=== PATIENT | male | born 1990 | race Caucasian/White ===

== ENCOUNTER 2021-08-12 03:02 | Emergency (ER) | payer MEDICAID, SELFPAY ==
[2021-08-12] VITALS (15 sets, daily range): BP systolic 124–133; BP diastolic 81–95; PULSE 106–114; RESP 17–26; TEMP 36.2; O2SAT 98–100
--- NOTE | 2021-08-12 03:00 | RT.EKG_ITS ---
APPROVED REPORT Exam: Resting ECG Reason for Exam: od Patient Location: E HR:112 bpm ECG Measurements Heart Rate 112 AXIS NM 138 P 44 QRSd 91 QRS 66 QT 334 T 10 QTc 456 Conclusion Sinus tachycardia...rate> 99 Physician: no stemi, intervals stable
--- NOTE | 2021-08-12 03:13 | ED.GENADUL_ITS ---
Discharge Plan Disposition Patient Disposition: HOME Condition: Good Discharge Details Clinical Impression: Overdose, Acute hypokalemia Primary Care Provider: Moni Camp ED Provider: Marcos Nichols Home Meds and New Rx's Prescriptions: Continued clindamycin HCl 300 MG capsule 300 mg PO QID Qty: 28 0RF dextroamphetamine-amphetamine 30 mg tablet 30 mg PO BID 0RF Label Comments: TAKE ONE TABLET BY MOUTH TWICE DAILY buspirone 10 mg tablet 10 mg PO BID 0RF Label Comments: TAKE 1 TABLET BY MOUTH TWICE DAILY albuterol sulfate [ProAir HFA] 90 mcg/actuation HFA aerosol inhaler 2 inh INHALATION PRN PRN0RF Label Comments: INHALE 2 PUFFS BY MOUTH EVERY 6 HOURS NEEDED . 1 INHALER TO LAST 30 DAYS Discharge Instructions Instructions: Hypokalemia (ED), Adult Overdose (ED) Additional Instructions: It is our recommendation that you avoid using any illicit substances, including narcotic substances since this can be life-threatening. Please use Narcan if needed. If you notice any worsening of your symptoms, or any new symptoms such as vomiting, diarrhea, fever, chills, shortness of breath, chest pain, numbness, weakness, or fainting , please return immediately to the emergency department for reevaluation. Please follow up with your primary care provider as soon as possible for reassessment and reevaluation. As always, it was a pleasure participating in your medical care today. Referrals: Moni Camp [Primary Care Provider] - Medical Decision Making this is a 31-year-old male with a past medical history of illicit drug use, who presents today from [place] for medical evaluation. The patient is vague on details, but per EMS report the patient was found overdose at home, state police allegedly performed CPR, but to what degree is unknown, he was given multiple doses of Narcan and came to shortly after this. EMS reports that state police also threw a bucket of ice water on him and this seemed to help him wake up as well. At the time EMS arrived, the patient was responsive, showed no neurologic deficits, and was hemodynamically stable. Patient was going to go to [facility] at that time, however [facility] police requested that EMS divert to [facility] so that the patient would remain in [place] jurisdiction as he was in police custody technically. Currently the patient denies any homicidal or suicidal ideations. He denies any drug use and states that he does not recall the events of the evening. He does not exactly recall the last time he used heroin, states that he has used it in the past. He does speak fairly prolifically about his frustration with the calyceal system, as well as his current status. Patient has no complaints of chest pain, shortness of breath, headache, numbness tingling or weakness. No other complaints at this time. No other modifying factors. Physical exam Demonstrates no concerning abnormalities. No evidence of trauma to the chest, or signs of CPR of the chest. Patient shows no neurologic deficits. Exam otherwise unremarkable. We will gently rehydrate, evaluate for concerning abnormalities, monitor closely and reassess. 4:16 AM The [facility] railroad police is now here. He states that patient was unresponsive, he did check for carotid pulse and was unsure if 1 was present, and so noticing that the patient was not breathing began CPR because of this. The patient response came after the Narcan administration. The railroad police also states that the patient is currently only in police custody until a citation can be given which the railroad police is waiting for the citation warning from the personnel officer. We are still pending the patient's laboratory work-up, he is otherwise stable at this time. He feels well. 4:34 AM The remainder of the patient's laboratory work-up is returned and is stable. Potassium slightly low, but does not need emergent correction. Recommended high potassium foods on an outpatient basis. Will give Narcan for home use. Patient stable. Different sites which to return. No signs of respiratory distress, cardiac abnormality, chest pain, shortness of breath or other concerning abnormality. I did offer counseling services for addiction with the patient, and he has declined at this time. I have extensively reviewed the treatment plan and discharge instructions with the patient. I have addressed all patient concerns at this time. The patient was made aware of what symptoms to monitor for that would warrant a return to the emergency department. Discussed the plan with the patient, they demonstrate verbal understanding and agreement with our assessment and plan at this time. The documentation in this chart was dictated using [employer] dictation software. Please excuse any dictation errors. HPI General Date/Time Provider Initiated Documentation: 08/12/21 03:12 . HPI Narrative: this is a 31-year-old male with a past medical history of illicit drug use, who presents today from [place] for medical evaluation. The patient is vague on details, but per EMS report the patient was found overdose at home, state police allegedly performed CPR, but to what degree is unknown, he was given multiple doses of Narcan and came to shortly after this. EMS reports that state police also threw a bucket of ice water on him and this seemed to help him wake up as well. At the time EMS arrived, the patient was responsive, showed no neurologic deficits, and was hemodynamically stable. Patient was going to go to [facility] at that time, however [facility] police requested that EMS divert to [facility] so that the patient would remain in [place] jurisdiction as he was in police custody technically. Currently the patient denies any homicidal or suicidal ideations. He denies any drug use and states that he does not recall the events of the evening. He does not exactly recall the last time he used heroin, states that he has used it in the past. He does speak fairly prolifically about his frustration with the calyceal system, as well as his current status. Patient has no complaints of chest pain, shortness of breath, headache, numbness tingling or weakness. No other complaints at this time. No other modifying factors. Related Data Home Medications Medication Instructions Recorded Confirmed clindamycin HCl 300 mg capsule 300 mg PO QID #28 cap 01/27/17 albuterol sulfate 90 mcg/actuation 2 inh INHALATION PRN PRN 08/12/21 08/12/21 aerosol inhaler (ProAir HFA) buspirone 10 mg tablet 10 mg PO BID 08/12/21 08/12/21 dextroamphetamine-amphetamine 30 30 mg PO BID 08/12/21 08/12/21 mg tablet Previous Rx's Medication Instructions Recorded clindamycin HCl 300 mg capsule 300 mg PO QID #28 cap 01/27/17 Allergies Allergy/AdvReac Type Severity Reaction Status Date / Time ibuprofen Allergy Intermediate Hives Unverified 08/12/21 03:13 General Stated Complaint: OD/Poison RICHELLE: 2 Review of Systems All systems reviewed & are unremarkable except as noted in HPI and below PFSH All Active Problems (Updated 08/12/21 @ 04:27 by Marcos Nichols DO) Overdose (Acute) Acute hypokalemia (Acute) Social History Smoking/Tobacco Use Status: Current every day Smoking risk assessment performed?: Yes Alcohol Intake: current Alcohol Intake frequency: a few times a week Alcohol type: hard liquor Substance use type: heroin Exam Narrative Exam Narrative: 1.Const: Well-nourished, Well-developed, appearing stated age 2.Eyes: PERRL, no conjunctival injection, and symmetrical lids. 3.ENT: Atraumatic external nose and ears. Moist MM. Neck: Symmetric, trachea midline, No thyromegaly. 4.CVS: +S1/S2, No murmurs or gallops. Peripheral pulses 2+ and equal in all extremities. Brisk capillary refill in all extremities. 5.RESP: Unlabored respiratory effort. Clear to auscultation bilaterally. No wheezes rales or rhonchi 6.GI: Soft, Nontender/Nondistended, No hepatosplenomegaly. No guarding or rebound. 7.MSK: Normocephalic/Atraumatic, Extremities w/o deformity or ttp No cyanosis or clubbing, Normal movement of all extremities, no evidence of trauma over the chest. No evidence of abrasion secondary to CPR. 8.Skin: Warm, Dry. No rashes or lesions. 9.Neuro: greaser helper II-XII grossly intact. Sensation grossly intact, no focal neurologic deficits. All 6 cardinal planes of vision are fully intact. No evidence of rotatory or vertical nystagmus. The patient demonstrated a normal [id number], good dexterity. There was no evidence of dysdiadochokinesia. Patient was able to ambulate without difficulty. There was no wide-based gait. Romberg testing was normal. Okee-[id number] testing was normal. Sensation was intact bilaterally as well as muscle strength bilaterally for all extremities. Patient was able to verbalize butter cup with no slurring, or miss pronunciation. 10.Psych: (AAO) x3. Appropriate mood and affect Course Vital Signs Vital signs: Vital Signs Temperature 36.2 C L 08/12/21 03:06 Pulse 112 H 08/12/21 03:06 Respiratory Rate 26 H 08/12/21 03:06 Blood Pressure 133/95 H 08/12/21 03:06 Pulse Oximetry 100 08/12/21 03:06 Temperature 36.2 C L 08/12/21 03:06 Temperature Source Skin 08/12/21 03:06 Pulse 112 H 08/12/21 03:06 Respiratory Rate 21 08/12/21 03:09 Respiratory Effort Non-Labored 08/12/21 03:09 Respiratory Depth Normal 08/12/21 03:09 Respiratory Pattern Normal 08/12/21 03:09 Blood Pressure 133/95 H 08/12/21 03:06 Blood Pressure Position Supine 08/12/21 03:06 Pulse Oximetry 100 08/12/21 03:06 Oxygen Delivery Method Room Air 08/12/21 03:06 Oxygen Flow Rate 0 08/12/21 03:06 PAWSS Have you Been Recently Intoxicated or Drunk Within the Last 30 days?: No Have you Ever Experienced Previous Episodes of Alcohol Withdrawal?: No Have you ever Experienced Withdrawal Seizures?: No Have you ever Experienced Delirium Tremens(DT)s?: No Have you ever undergone Alcohol Rehabilitation Treatment (i.e, inpt ot outpatient treatment programs)?: No Have you ever Experienced Blackouts?: No Have you ever Combined Alcohol with other Downers within the last 90 days?: No Have you ever Combined Alcohol with any other Substance of Abuse during the last 90 days?: No Positive Blood Alcohol level on Presentation? [PCS.BAL]: No Evidence of Increased Autonomic Activity (i.e. HR>120, tremor, sweating, agitation, nausea)?: No Result: 0
[2021-08-12] MEDS: Normal Saline 1,000 ML 1000 ML IV (03:22)
[2021-08-12 03:49] LABS: Abs Immature Grans 0.06 10^3/uL (0.0-0.06); Absolute Basophil Count 0.08 10^3/uL (0.0-0.2); Absolute Eosinophil Count 0.42 10^3/uL (0.0-0.7); Absolute Lymphocyte Count 2.12 10^3/uL (1.2-3.4); Absolute Neutrophil Count 9.81 10^3/uL (1.2-6.7); Basophils % 0.6; Eosinophils % 3.1; HCT 39.8 % (40.0-50.0); HGB 12.8 g/dL (13.5-17.5); Immature Grans % 0.4; Lymphocytes % 15.6; MCH 29.2 pg (27.0-33.0); MCHC 32.2 % (32.0-36.0); MCV 90.7 fL (80-95); MPV 9.5 fL (8.0-11.0); Neutrophils % 72.3; Platelet Count 364 10^3/uL (130-400); RBC 4.39 10^6/uL (4.36-5.78); RDW 13.6 % (11.8-14.1); RDW-SD 46.2 fL; WBC 13.57 10^3/uL (4.4-10.8)
[2021-08-12 03:50] LABS: Absolute Monocyte Count 1.09 10^3/uL (0.1-0.8)
[2021-08-12 04:20] LABS: ALT 19 U/L (16-63); AST 17 U/L (15-37); Albumin 3.3 g/dL (3.4-5.0); Alkaline Phosphatase 116 U/L (46-116); Anion Gap 8.5 mmol/L (3-11); BUN 13 mg/dL (7-18); Bilirubin, Total 0.2 mg/dL (0.2-1.0); CO2 27.5 mmol/L (21.0-32.0); CREATININE 0.9 mg/dL (0.70-1.30); Calcium 8.1 mg/dL (8.5-10.1); Chloride 104 mmol/L (98-107); Glucose 92 mg/dL (74-106); Potassium 3.3 mmol/L (3.5-5.1); Sodium 140 mmol/L (136-145); TSH (W/Ref FT4) 1.71 uIU/mL (0.36-3.74); Total Protein 7.4 g/dL (6.4-8.2); Troponin I < 50 ng/L (<or=60)
== END 2021-08-12 05:01 | disposition home or self-care (01) ==
PROVIDERS: Emergency Provider Student in an Organized Health Care Education/Training Program; PCP Family Medicine
DX: T40.1X1A Poisoning by heroin, accidental (unintentional), initial encounter (principal); R40.4 Transient alteration of awareness; E87.6 Hypokalemia
CPT/HCPCS: 36415; 80053; 80307; 93005; 96360; 99285; 84443; 84484; 85025; 93010; 99284